=== PATIENT | female | born 1980 | race Caucasian/White ===

== ENCOUNTER 2018-02-16 11:12 | Emergency (ER) | payer SELFPAY ==
[2018-02-16] MEDS: traMADol 50 MG TABLET PO (11:44)
== END 2018-02-16 12:56 | disposition home or self-care (01) ==
LOC: ER 11:12
DX: S43.101A Unspecified dislocation of right acromioclavicular joint, initial encounter (principal); S46.911A Strain of unspecified muscle, fascia and tendon at shoulder and upper arm level, right arm, initial encounter; Z79.891 Long term (current) use of opiate analgesic; V43.62XA Car passenger injured in collision with other type car in traffic accident, initial encounter; Y92.410 Unspecified street and highway as the place of occurrence of the external cause; Y93.89 Activity, other specified; Y99.8 Other external cause status
CPT/HCPCS: 72100; 73030; 99284